=== PATIENT | female | born 1965 | race American Indian/Alaskan Native ===

== ENCOUNTER 2017-10-06 16:25 | Emergency (ER) | payer OTHER ==
[2017-10-06 17:39] LABS: Basophils % (Auto) 0.3 % (0.0-1.8); Hematocrit 27.8 % (30.3-42.9); Hemoglobin 9.5 gm/dl (10.1-14.3); Mean Corpuscular HGB Conc 34 % (30-34); Mean Corpuscular Hemoglobin 37 pg (28-32); Mean Corpuscular Volume 107 fl (79-97); Platelet Count 127 K/mm3 (140-440); Red Blood Count 2.61 M/mm3 (3.65-5.03); Red Cell Distribution Width 18.6 % (13.2-15.2); White Blood Count 13.2 K/mm3 (4.5-11.0)
--- NOTE | 2017-10-06 17:50 | Emergency Department Report ---
Chief Complaint: Dizziness Stated Complaint: COUGH/SMELLY URINE Time Seen by Provider: 10/06/17 17:47 - HPI History of Present Illness: Patient with H/O HTN presents to ED with c/o upper abdominal pain, dizziness, SOB and strong smelling urine for the past 2 days; denies CP and fevers - ROS Review of Systems: Negative except for those stated in HPI - Exam Vital Signs: Vital Signs 10/06/17 17:03 Temperature 99.8 F H Pulse Rate 109 H Respiratory 16 Rate Blood Pressure 127/84 O2 Sat by Pulse 99 Oximetry Physical Exam: NAD RRR CTAB Abdomen - Mild TTP over RUQ MSE screening note: Focused history and physical exam performed. Due to findings the following was ordered: CXR, labs Patient to be seen by provider in Main ED ED Medical Decision Making - Lab Data Result diagrams: 10/06/17 17:28 ED Disposition for MSE Condition: Stable
[2017-10-06 17:58] LABS: Alanine Aminotransferase 41 units/L (7-56); Albumin 2.7 g/dL (3.9-5); Albumin/Globulin Ratio 0.6 %; Alkaline Phosphatase 216 units/L (35-129); Anion Gap 13 mmol/L; BUN/Creatinine Ratio 10; Blood Urea Nitrogen 5 mg/dL (7-17); Calcium 7.7 mg/dL (8.4-10.2); Carbon Dioxide 28 mmol/L (22-30); Glucose 105 mg/dL (65-100); Lipase 24 units/L (13-60); Potassium 3.4 mmol/L (3.6-5.0); Sodium 126 mmol/L (137-145)
[2017-10-06 18:03] LABS: Hematocrit 27.3 % (30.3-42.9); Hemoglobin 9.3 gm/dl (10.1-14.3); Mean Corpuscular HGB Conc 34 % (30-34); Mean Corpuscular Hemoglobin 37 pg (28-32); Mean Corpuscular Volume 107 fl (79-97); Platelet Count 123 K/mm3 (140-440); Red Blood Count 2.55 M/mm3 (3.65-5.03); Red Cell Distribution Width 18.8 % (13.2-15.2); White Blood Count 12.4 K/mm3 (4.5-11.0)
[2017-10-06 18:40] LABS: Bacteria,Urine 2+ /HPF (Negative); Bilirubin,Urine SM (Negative); Blood,Urine NEG (Negative); Ketones,Urine NEG (Negative); Leukocyte Esterase,Urine TR (Negative); Mucus,Urine FEW /HPF; Nitrite,Urine NEG (Negative)
--- NOTE | 2017-10-06 20:27 | XRay Report ---
FINAL REPORT EXAM: XR CHEST ROUTINE 2V HISTORY: SOB TECHNIQUE: Two view chest PA and lateral PRIORS: None. FINDINGS: Cardiac and mediastinal contours are unremarkable. No focal pulmonary infiltrate is identified. No pleural fluid collection seen. Pulmonary vasculature is unremarkable. IMPRESSION: Negative two-view chest
[2017-10-07] MEDS ORDERED: NACL 0.9% 1000 ML 1,000 ML IV ONE (00:53)
--- NOTE | 2017-10-07 01:01 | Emergency Department Report ---
ED Abdominal Pain HPI - General Chief Complaint: Dizziness Stated Complaint: COUGH/SMELLY URINE Time Seen by Provider: 10/06/17 17:47 Source: patient Mode of arrival: Ambulatory Limitations: No Limitations - History of Present Illness Initial Comments: 51 yo female who comes in today due to abdominal pain, nausea, vomiting, diarrhea, and foul smelling urine. She states that it has been present times two weeks. She denies any sick contacts, but does admit to a history of hypertension controlled with herbs. She also admits to having diarrhea in the ED today since being here. Is able to tolerate po and keep things down. MD Complaint: abdominal pain (n/v/d) -: week(s) (two) Location: diffuse Radiation: none Migration to: no migration Severity scale (0 -10): 5 Quality: cramping, aching Consistency: constant Improves With: nothing Worsens With: nothing Context: other (none) Associated Symptoms: nausea, diarrhea - Related Data Allergies Allergy/AdvReac Type Severity Reaction Status Date / Time No Known Allergies Allergy Unverified 10/06/17 17:02 ED Review of Systems ROS: Stated complaint: COUGH/SMELLY URINE Other details as noted in HPI Constitutional: denies: chills, fever Eyes: denies: eye pain, eye discharge, vision change ENT: denies: ear pain, throat pain Respiratory: denies: cough, shortness of breath, wheezing Cardiovascular: denies: chest pain, palpitations Endocrine: no symptoms reported Gastrointestinal: as per HPI Genitourinary: dysuria Skin: denies: rash, lesions Neurological: denies: headache, weakness, paresthesias Psychiatric: denies: anxiety, depression Hematological/Lymphatic: denies: easy bleeding, easy bruising ED Past Medical Hx - Past Medical History Previous Medical History?: Yes Hx Hypertension: Yes - Surgical History Past Surgical History?: Yes Additional Surgical History: ex lap from [facility] in 1992, tubal ligation - Social History Smoking Status: Current Some Day Smoker Substance Use Type: Alcohol ED Physical Exam - General Limitations: No Limitations General appearance: alert, in no apparent distress - Head Head exam: Present: atraumatic, normocephalic - Eye Eye exam: Present: normal appearance - ENT ENT exam: Present: mucous membranes moist - Neck Neck exam: Present: normal inspection - Respiratory Respiratory exam: Present: normal lung sounds bilaterally. Absent: respiratory distress - Cardiovascular Cardiovascular Exam: Present: tachycardia - GI/Abdominal GI/Abdominal exam: Present: soft, normal bowel sounds - Rectal Rectal exam: Present: deferred - Extremities Exam Extremities exam: Present: normal inspection - Back Exam Back exam: Present: normal inspection - Neurological Exam Neurological exam: Present: alert, oriented X3 - Psychiatric Psychiatric exam: Present: normal affect, normal mood - Skin Skin exam: Present: warm, dry, intact, normal color. Absent: rash ED Course Vital Signs 10/06/17 10/07/17 10/07/17 17:03 01:41 01:45 Temperature 99.8 F H Pulse Rate 109 H Respiratory 16 18 Rate Blood Pressure 127/84 130/87 O2 Sat by Pulse 99 98 97 Oximetry 10/07/17 10/07/17 10/07/17 02:00 02:30 03:00 Temperature Pulse Rate Respiratory Rate Blood Pressure 122/79 102/55 116/76 O2 Sat by Pulse 97 97 Oximetry 10/07/17 10/07/17 10/07/17 03:30 04:20 04:30 Temperature Pulse Rate Respiratory Rate Blood Pressure 114/58 114/58 112/69 O2 Sat by Pulse 97 96 Oximetry - Reevaluation(s) Reevaluation #1: 10/07/17 01:02 The patient admits to abdominal pain, nausea, vomiting, diarrhea, and foul smelling urine times two weeks. One episode of diarrhea in the ED tonight. ED Medical Decision Making - Lab Data Result diagrams: 10/06/17 17:52 10/06/17 17:28 - Radiology Data Radiology results: report reviewed Acute abdomen unremarkable. Abdominal ultrasound revealed hepatic steatosis and gallbladder edema. - Medical Decision Making Nausea/vomiting/diarrhea UTI Gallbladder edema/hepatic steatosis Dehydration - Differential Diagnosis N/V/D, uti, hepatic steatosis, gallbladder edema, dehydration, elevated lft Critical care attestation.: If time is entered above; I have spent that time in minutes in the direct care of this critically ill patient, excluding procedure time. ED Disposition Clinical Impression: UTI (urinary tract infection), Dehydration, Hepatic steatosis Disposition: -01 TO HOME OR SELFCARE Is pt being admited?: No Does the pt Need Aspirin: No Condition: Stable Instructions: Urinary Tract Infection in Women (ED), Non-Alcoholic Fatty Liver Disease (ED), Dehydration (ED), Hypokalemia (ED) Additional Instructions: Please establish with a provider on discharge. Return to the ED for worsening abdominal pain, nausea, vomiting, fever, chills, or bloody stools. Referrals: VINAY GARCIAS MD [Primary Care Provider] - 3-5 Days Time of Disposition: 04:53
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
[2017-10-07] MEDS ORDERED: K-DUR PO ONE (02:42)
[2017-10-07 04:34] VITALS: BP 112/69
--- NOTE | 2017-10-07 04:39 | Ultrasound Report ---
FINAL REPORT EXAM: US ABDOMEN LIMITED HISTORY: RUQ pain TECHNIQUE: Routine imaging was obtained of the right upper outer quadrant. FINDINGS: The gallbladder is normal in size and reveals generalized wall thickening and pericholecystic edema. There is dependent sludge in the gallbladder. Stones are not definitely seen. A Manley sign was not elicited when scanning over the gallbladder. The common bile duct measures 6 millimeters in diameter which is at the upper range of normal. The liver is normal size and reveals increased echotexture compatible with hepatic steatosis. The right kidney shows no evidence of hydronephrosis. Free fluid is not seen. The pancreas is obscured by bowel gas. IMPRESSION: Generalized gallbladder wall thickening with pericholecystic edema and dependent sludge. A Manley sign was not mention by the cytotechnologist/cytology supervisor. Acute cholecystitis still cannot be ruled out. Hepatic steatosis.
== END 2017-10-07 05:46 | disposition home or self-care (01) ==
LOC: ED 16:25
DX: N39.0 Urinary tract infection, site not specified (principal); E86.0 Dehydration; K76.0 Fatty (change of) liver, not elsewhere classified; I10 Essential (primary) hypertension; F17.200 Nicotine dependence, unspecified, uncomplicated
CPT/HCPCS: 36415; 71020; 74020; 76705; 80053; 81001; 83690; 85025; 85027; 96360; 99284; J7030